=== PATIENT | female | born 1980 | race American Indian/Alaskan Native ===

== ENCOUNTER 2018-11-08 11:29 | Outpatient (CLI) | payer OTHER | END 2018-11-08 12:29 | disposition home or self-care (01) | LOC: NST 11:29 | DX: Z34.82 Encounter for supervision of other normal pregnancy, second trimester (principal) ==

== ENCOUNTER 2018-11-12 13:25 | Outpatient (CLI) | payer OTHER | END 2018-11-12 14:50 | disposition home or self-care (01) | LOC: NST 13:25 | DX: Z34.83 Encounter for supervision of other normal pregnancy, third trimester (principal) ==

== ENCOUNTER 2018-11-26 08:51 | Outpatient (CLI) | payer OTHER | END 2018-11-26 09:51 | disposition home or self-care (01) | LOC: NST 08:51 | DX: Z34.83 Encounter for supervision of other normal pregnancy, third trimester (principal) ==

== ENCOUNTER 2018-12-03 08:47 | Outpatient (CLI) | payer OTHER | END 2018-12-03 09:24 | disposition home or self-care (01) | LOC: NST 08:47 | DX: Z34.83 Encounter for supervision of other normal pregnancy, third trimester (principal) ==

== ENCOUNTER 2018-12-17 12:27 | Outpatient (CLI) | payer OTHER | END 2018-12-17 13:38 | disposition home or self-care (01) | LOC: NST 12:27 | DX: Z34.83 Encounter for supervision of other normal pregnancy, third trimester (principal) ==

== ENCOUNTER 2018-12-23 08:55 | Outpatient (CLI) | payer OTHER | END 2018-12-23 09:35 | disposition home or self-care (01) | LOC: NST 08:55 | DX: Z34.83 Encounter for supervision of other normal pregnancy, third trimester (principal) ==

== ENCOUNTER 2019-01-07 11:10 | Inpatient (IN) | payer OTHER ==
[~2019-01-07] VITALS: Ht 162.6 cm; Wt 90.7 kg
[2019-01-23] MEDS ORDERED: PRENATAL TABLE1 EAC1 PO (08:12)
[2019-01-23] MEDS ORDERED: IRON PO (08:14)
[2019-01-24] MEDS ORDERED: IRON236 MG PO (11:06)
[2019-01-24] MEDS ORDERED: NIFEDIPINE ER60 M1 PO (11:08)
== END 2019-01-25 14:40 | disposition home or self-care (01) | DRG 807 ==
LOC: LDR 01-23 05:17 → OB/GYN 01-23 05:17
PROVIDERS: ADMIT Obstetrics & Gynecology Maternal & Fetal Medicine
PROC: 10E0XZZ Delivery of Products of Conception, External Approach (ICD-10-PCS; principal; 2019-01-23)
PROC: 4A0HXFZ Measurement of Products of Conception, Cardiac Rhythm, External Approach (ICD-10-PCS; 2019-01-23)
DX: O60.14X0 Preterm labor third trimester with preterm delivery third trimester, not applicable or unspecified (principal); Z37.0 Single live birth; Z3A.35 35 weeks gestation of pregnancy

== ENCOUNTER 2025-05-02 09:40 | Outpatient (CLI) | payer OTHER ==
[~2025-05-02 09:40] MED LIST: IRON PO; IRON236 MG PO; NIFEDIPINE ER60 M1 PO; PRENATAL TABLE1 EAC1 PO
== END 2025-05-02 09:42 | disposition home or self-care (01) ==
LOC: SONOGRAMA 09:40
PROVIDERS: ATTEND Obstetrics & Gynecology Maternal & Fetal Medicine
DX: N84.0 Polyp of corpus uteri (principal)